=== PATIENT | male | born 1995 | race Caucasian/White ===

== ENCOUNTER 2018-01-21 07:49 | Emergency (ER) | payer MEDICAID, OTHER ==
[2018-01-21 08:00] VITALS: BP 132/81
[2018-01-21] MEDS ORDERED: LORazepam 2 MG/ML SDV IVPUSH ONE ×3 (08:09→08:42)
--- NOTE | 2018-01-21 08:12 | EDM.PDOCBH ---
ED HPI GENERAL MEDICAL PROBLEM - General Chief Complaint: Drug or Alcohol Abuse Stated Complaint: CHEST PAIN/THROAT SWELLING Time Seen by Provider: 01/21/18 08:01 Source of Information: Reports: Patient, Family (frined) History Limitations: Reports: No Limitations - History of Present Illness INITIAL COMMENTS - FREE TEXT/NARRATIVE: 22 year old male presents to ED after using IV Methaphetamines this am. [place] central chest preasure /squeeze about one hour after IV injection. Not aware of any palpations. Feels lightheaded and dizzy. Has used meth before without any problems or similar feelings. Feels temulous and anxious. ECG done by yuan vickers reveals sinus rythm at 789/mion. No signs of ischemia. r Onset: Today Onset Date: 01/21/18 Onset Time: 07:00 Duration: Minutes: Location: Reports: Chest (central chest squeeze /discomfort. ) Quality: Reports: Ache, Pressure Severity: Moderate Improves with: Reports: None Worsens with: Reports: None Context: Reports: Other (IV use of methampheatmines. ). Denies: Activity, Exercise, Lifting, Sick Contact Associated Symptoms: Reports: Chest Pain. Denies: Cough, cough w sputum, Diaphoresis, Headaches, Loss of Appetite, Malaise, Nausea/Vomiting, Rash, Seizure, Shortness of Breath, Syncope Treatments [employer]: Reports: Other (see below) (none. ) Chest Pain Score (Numeric/FACES): 7 - Related Data Allergies Allergy/AdvReac Type Severity Reaction Status Date / Time No Known Allergies Allergy Verified 01/21/18 07:56 Home Meds: Home Meds . [No Known Home Meds] 05/19/15 [History] Past Medical History Gastrointestinal History: Reports: None Other Musculoskeletal History: mylocytosis Psychiatric History: Reports: Addiction Other Psychiatric History: ODD - Past Surgical History GI Surgical History: Reports: Appendectomy Social & Family History - Family History Family Medical History: Noncontributory - Tobacco Use Smoking Status *Q: Current Every Day Smoker Years of Tobacco use: 6 Packs/Tins Daily: 0.5 - Caffeine Use Caffeine Use: Reports: Coffee - Recreational Drug Use Recreational Drug Use: Yes Drug Use in Last 12 Months: Yes Recreational Drug Type: Reports: Methamphetamine Recreational Drug Use Frequency: Daily - Living Situation & Occupation Living situation: Reports: Single Occupation: Student ED ROS GENERAL - Review of Systems Review Of Systems: See Below Constitutional: Denies: Fever, Malaise, Weakness, Fatigue, Weight Loss HEENT: Reports: No Symptoms Respiratory: Reports: No Symptoms Cardiovascular: Reports: Chest Pain. Denies: Blood Pressure Problem, Lightheadedness Endocrine: Reports: No Symptoms GI/Abdominal: Reports: No Symptoms : Reports: No Symptoms Musculoskeletal: Reports: No Symptoms Skin: Reports: No Symptoms Neurological: Reports: No Symptoms Psychiatric: Reports: No Symptoms Hematologic/Lymphatic: Reports: No Symptoms Immunologic: Reports: No Symptoms ED EXAM, BEHAVIORAL HEALTH - Physical Exam Exam: See Below Exam Limited By: No Limitations General Appearance: Alert, Anxious, Moderate Distress Throat/Mouth: Normal Inspection, Other (orpharynx is inflamed from cigarette smoking. Tongue is mildy dry and coated. ) Neck: Normal Inspection, Supple, Non-Tender, Full Range of Motion. No: Carotid Bruit, Lymphadenopathy (L), Lymphadenopathy (R) Respiratory/Chest: No Respiratory Distress, Lungs Clear, Normal Breath Sounds, No Accessory Muscle Use, Chest Non-Tender Cardiovascular: Normal Peripheral Pulses, Regular Rate, Rhythm, No Edema, No Gallop, No Murmur GI/Abdominal: Normal Bowel Sounds, Soft, Non-Tender, No Organomegaly, No Abnormal Bruit, No Mass, Pelvis Stable Back Exam: Normal Inspection, Full Range of Motion. No: CVA Tenderness (L), CVA Tenderness (R) Extremities: Normal Inspection, Normal Range of Motion, Non-Tender, No Pedal Edema, Normal Capillary Refill Neurological: Alert, Normal Mood/Affect, CN II-XII Intact, Normal Cognition, Normal Reflexes Psychiatric: Agitated (mild ), Other (anxious) Skin Exam: Warm, Dry, Intact, Normal color, No rash EKG INTERPRETATION EKG Date: 01/21/18 Time: 08:05 Rhythm: NSR Rate (Beats/Min): 89 [place]: LAD-Left [place] Deviation P-Wave: Present QRS: Other ST-T: Normal QT: Normal COURSE, BEHAVIORAL HEALTH COMP - Course Vital Signs: Last Vital Signs Temp 36.8 C 01/21/18 07:56 Pulse 91 01/21/18 07:56 Resp 16 01/21/18 07:56 BP 132/81 01/21/18 07:56 Pulse Ox 100 05/07/18 07:56 Orders, Labs, Meds: Active Orders 24 hr Category Date Time Status EKG Documentation Completion [RC] ASDIRECTED Care 01/21/18 08:09 Inactive EKG Documentation Completion [RC] STAT Care 01/21/18 08:09 Inactive EKG Documentation Completion [RC] STAT Care 01/21/18 08:11 Active DRUG SCREEN, URINE [URCHEM] Stat Lab 01/21/18 10:08 Ordered Dextrose 5%-0.9% NaCl [Dextrose 5%-Normal Saline] 1,000 Med 01/21/18 08:15 Active ml IV ASDIRECTED EKG 12 Lead [EK] Stat Ther 01/21/18 08:09 Stop Req Medication Orders Dextrose/Sodium Chloride (Dextrose 5%-Normal Saline) 1,000 mls @ 999 mls/hr IV ASDIRECTED JIMMIE Last Admin: 01/21/18 08:16 Dose: 999 mls/hr Laboratory Tests 01/21/18 01/21/18 01/21/18 Range/Units 08:21 08:21 10:08 WBC 12.50 H (4.23-9.07) K/mm3 RBC 5.13 (4.63-6.08) M/mm3 Hgb 15.2 (13.7-17.5) gm/L Hct 42.7 (40.1-51.0) % MCV 83.2 (79.0-92.2) fl MCH 29.6 (25.7-32.2) pg MCHC 35.6 H (32.2-35.5) g/dl RDW Std Deviation 38.2 (35.1-43.9) fL Plt Count 354 H (163-337) K/mm3 MPV 8.8 L (9.4-12.3) fl Neutrophils % (Manual) 73 H (40-60) % Band Neutrophils % 0 (0-10) % Lymphocytes % (Manual) 23 (20-40) % Atypical Lymphs % 0 % Monocytes % (Manual) 2 (2-10) % Eosinophils % (Manual) 2 (0.8-7.0) % Basophils % (Manual) 0 L (0.2-1.2) Platelet Estimate Adequate RBC Morph Comment Normal Sodium 142 (136-145) mEq/L Potassium 3.2 L (3.5-5.1) mEq/L Chloride 103 (98-107) mEq/L Carbon Dioxide 25 (21-32) mEq/L Anion Gap 17.2 H (5-15) BUN 14 (7-18) mg/dL Creatinine 1.1 (0.7-1.3) mg/dL Est Cr Clr Drug Dosing 110.61 mL/min Estimated GFR (MDRD) > 60 (>60) mL/min BUN/Creatinine Ratio 12.7 L (14-18) Glucose 84 (74-106) mg/dL Calcium 10.2 H (8.5-10.1) mg/dL Total Bilirubin 0.7 (0.2-1.0) mg/dL AST 16 (15-37) U/L ALT 32 (16-63) U/L Alkaline Phosphatase 89 (46-116) U/L CK-MB (CK-2) 3.2 (0-3.6) ng/ml Troponin I < 0.017 (0.00-0.056) ng/mL Total Protein 8.6 H (6.4-8.2) g/dl Albumin 4.8 (3.4-5.0) g/dl Globulin 3.8 gm/dL Albumin/Globulin Ratio 1.3 (1-2) Urine Opiates Screen Negative (NEGATIVE) Ur Buprenorphine Scrn Negative (NEGATIVE) Ur Oxycodone Screen Negative (NEGATIVE) Urine Methadone Screen Negative (NEGATIVE) Ur Propoxyphene Screen Negative (NEGATIVE) Ur Barbiturates Screen Negative (NEGATIVE) Ur Tricyclics Screen Negative (NEGATIVE) Ur Phencyclidine Scrn Negative (NEGATIVE) Ur Amphetamine Screen Presumptive positive H (NEGATIVE) U Methamphetamines Scrn Negative (NEGATIVE) U Benzodiazepines Scrn Presumptive positive H (NEGATIVE) U Cocaine Metab Screen Negative (NEGATIVE) U Marijuana (THC) Screen Presumptive positive H (NEGATIVE) Medications Generic Name Dose Route Start Last Admin Trade Name Freq PRN Reason Stop Dose Admin Dextrose/Sodium Chloride 1,000 mls @ 999 mls/hr 01/21/18 08:15 01/21/18 08:16 Dextrose 5%-Normal Saline IV 999 mls/hr ASDIRECTED JIMMIE Administration Discontinued Medications Generic Name Dose Route Start Last Admin Trade Name Freq PRN Reason Stop Dose Admin Haloperidol Lactate 2.5 mg 01/21/18 10:19 01/21/18 10:24 Haldol IVPUSH 01/21/18 10:20 2.5 mg ONETIME ONE Administration Lorazepam 0.5 mg 01/21/18 08:09 01/21/18 08:16 Ativan IVPUSH 01/21/18 08:10 0.5 mg ONETIME ONE Administration Lorazepam 0.5 mg 01/21/18 08:30 01/21/18 08:32 Ativan IVPUSH 01/21/18 08:31 0.5 mg ONETIME ONE Administration Lorazepam 1 mg 01/21/18 08:42 01/21/18 08:51 Ativan IVPUSH 01/21/18 08:43 1 mg ONETIME ONE Administration Re-Assessment/Re-Exam: 22 year old male presents to ED after IV use of methampheatmines with chief complaint of central chest discomfort. ECG reveals sinus rythm at 889/min with no signs of ischemia. Plan ;IV D5 normal saline at 999mls/hr. Ativan 0.5mg IV. Routine labs to include cardiac markers. CXR. Re-Assessment/Re-Exam Date: 01/21/18 ( feeling more anxious. Given another dose of Ativan 0.5mg IV. ) Re-Assessment/Re-Exam Time: 08:41 (now feels like he cant breath out of his mouth. Given another 1mg of Ativan IV. CXR portabe is normal. 02 satsare 98% on room air. ) Medical Clearance: 01/21/18 10:15 Labs are back revealing an elevated white count at 12.50 with 72 % neutrophils no bands. Hemoglobin is 15.2 with hematocrit of 42.7. Neutral count is 73% with no bands. Serum sodium is 142 with potassium slightly low at 3.2. Chloride is 103 with a bicarbonate 25. Anion gap is mildly elevated at 17.2. BUNs 14. Creatinine is 1.1. Glucose is 84. Calcium is 10.2. Bilirubin 0.7. AST is 16 ALTs 32. Alk phosphatase is 89. Troponin is less than 0.017. CK- MB is 3.2. Normal. Patient is exhibiting some visual hallucinations. He states he seeing ghosts that time. Still feeling rather anxious still talking a little faster rate than normal. Vital signs are normal. Will give him 2.5 mg of Haldol IV. Will see how he does in the next half hour so. 01/21/18 11:54 patient is doing better. He is now resting he has been sleeping for the last hour since the Haldol was given. Discharged in the care of his girlfriend to take him home to sleep. Of course he'll have to make a decision is going to continue his path of continued methamphetamine use and self- destructive behavior. Departure - Departure Time of Disposition: 12:13 Disposition: Home, Self-Care 01 Condition: Fair Clinical Impression: Adverse effect of amphetamines, initial encounter - Discharge Information Instructions: Stimulant Use Disorder-Amphetamines, Finding Treatment for Addiction, Stimulant Use Disorder-Methamphetamines Referrals: PCP,None [Primary Care Provider] - Additional Instructions: Evaluation in the emergency room today in regards to adverse effects of methamphetamine use. Development of central chest pain which proved to show no signs of heart involvement all of the heart may well been racing for a period of time after initial injection. Lab work indicates no signs of heart attack and ECG is normal. Started to have all kinds of abnormal symptoms such as anxiety throat closure and some paranoia and auditory hallucinations. You're treated with Ativan 0.5 mg IV 2 and then 1 mg IV 1. When she identified that she was experiencing auditory hallucinations you're also given Haldol 2.5 mg IV to alleviate hallucinations. Strongly urge you to consider reconsider using methamphetamines in the future. If you think you have a problem with methamphetamines please call [facility] at [phone] to arrange for counseling services. Other consulting centers are [facility] at [phone]. GERD center is [facility] substance abuse counseling center. Phone number is [phone]. Otherwise home to rest today plenty of fluids when you wake up such as Gatorade Powerade and resume diet as able. - My Orders Last 24 Hours: My Active Orders 01/21/18 08:09 EKG Documentation Completion [RC] ASDIRECTED EKG Documentation Completion [RC] STAT EKG 12 Lead [EK] Stat 01/21/18 08:11 EKG Documentation Completion [RC] STAT 01/21/18 08:15 Dextrose 5%-0.9% NaCl [Dextrose 5%-Normal Saline] 1,000 ml IV ASDIRECTED 01/21/18 10:08 DRUG SCREEN, URINE [URCHEM] Stat - Assessment/Plan Last 24 Hours: My Active Orders 01/21/18 08:09 EKG Documentation Completion [RC] ASDIRECTED EKG Documentation Completion [RC] STAT EKG 12 Lead [EK] Stat 01/21/18 08:11 EKG Documentation Completion [RC] STAT 01/21/18 08:15 Dextrose 5%-0.9% NaCl [Dextrose 5%-Normal Saline] 1,000 ml IV ASDIRECTED 01/21/18 10:08 DRUG SCREEN, URINE [URCHEM] Stat
[2018-01-21] MEDS ORDERED: Dextrose 5%-0.9% NaCl 1,000 ML IV SCH (08:15)
--- NOTE | 2018-01-21 08:55 | CR ---
Chest: Frontal view of the chest was obtained. Comparison: No prior chest x-ray. Heart size and mediastinum are normal. Lungs are clear. Minimal scoliosis is present within the spine. Impression: 1. Nothing acute is seen on frontal chest x-ray. Diagnostic code #1
[2018-01-21] MEDS ORDERED: Haloperidol Lactate 5 MG/ML SDV IVPUSH ONE (10:19)
== END 2018-01-21 12:12 | disposition home or self-care (01) ==
LOC: JD.ED 07:49
DX: R07.89 Other chest pain (principal); T43.625A Adverse effect of amphetamines, initial encounter; F17.210 Nicotine dependence, cigarettes, uncomplicated
CPT/HCPCS: 36415; 71045; 80053; 80306; 82553; 84484; 85025; 93005; 96361; 96374; 96375; 96376; 99285; J1630; J2060; J7042; 93010; 99284-25

== ENCOUNTER 2021-11-17 14:00 | Emergency (ER) | payer MEDICAID ==
[2021-11-17 14:15] VITALS: BP 129/72; PULSE 93
[2021-11-17] MEDS ORDERED: HYDROmorphone 0.5 MG/0.5 ML Syringe IVPUSH ONE (14:29)
[2021-11-17] MEDS ORDERED: Sodium Chloride 0.9% 10 ML Syringe FLUSH PRN (14:29)
[2021-11-17] MEDS ORDERED: HYDROmorphone 1 MG/ML Syringe IM ONE (14:45)
== END 2021-11-17 16:17 | disposition home or self-care (01) ==
LOC: JD.ED 14:00
DX: L89.899 Pressure ulcer of other site, unspecified stage (principal); Z72.0 Tobacco use
CPT/HCPCS: 36415; 80053; 85025; 86140; 96372; 99283; J1170

== ENCOUNTER 2021-12-12 12:37 | Emergency (ER) | payer MEDICAID ==
[2021-12-12 13:03] VITALS: BP 118/62; PULSE 106
[2021-12-12] MEDS ORDERED: Doxycycline 100 MG Cap PO ONE (13:06)
[2021-12-12] MEDS ORDERED: Mupirocin Oint 22 GM Tube TOP ONE (13:07)
[2021-12-12] MEDS ORDERED: Ketorolac 30 MG/ML SDV ONE (13:31)
[2021-12-12] MEDS ORDERED: Acetaminophen 325 MG Tab ONE (13:32)
[2021-12-12] MEDS ORDERED: Ketorolac 30 MG/ML SDV IM ONE (13:34)
[2021-12-12] MEDS ORDERED: Acetaminophen 325 MG Tab PO ONE (13:34)
== END 2021-12-12 13:47 | disposition home or self-care (01) ==
LOC: JD.ED 12:37
DX: S81.001A Unspecified open wound, right knee, initial encounter (principal); S81.801A Unspecified open wound, right lower leg, initial encounter
CPT/HCPCS: 87070; 87075; 87205; 96372; 99283; A9270; J1885; 87077; 87186

== ENCOUNTER 2022-03-15 22:20 | Emergency (ER) | payer MEDICAID ==
[2022-03-15 22:38] VITALS: BP 126/68; PULSE 105
[2022-03-15] MEDS ORDERED: Morphine 2 MG/ML SYRINGE IVPUSH ONE (23:22)
[2022-03-15] MEDS ORDERED: Ondansetron 4 MG/2 ML SDV IVPUSH ONE (23:22)
[2022-03-15] MEDS ORDERED: Lactated Ringers 1,000 ML IV SCH (23:30)
[2022-03-16] MEDS ORDERED: Azithromycin 250 MG Tab PO ONE (01:19)
[2022-03-16] MEDS ORDERED: cefTRIAXone 1 GM, Lidocaine 1% 2.1 ML IM SCH ×2 (01:30)
== END 2022-03-16 01:45 | disposition home or self-care (01) ==
LOC: JD.ED 22:20
DX: N30.01 Acute cystitis with hematuria (principal); N49.0 Inflammatory disorders of seminal vesicle; F17.210 Nicotine dependence, cigarettes, uncomplicated
CPT/HCPCS: 36415; 74176; 80053; 81001; 85025; 96361; 96372; 96374; 96375; 99284; A9270; J0696; J2270; J2405; J7120

== ENCOUNTER 2022-04-18 12:15 | Emergency (ER) | payer MEDICAID ==
[2022-04-18 12:43] VITALS: BP 110/56; PULSE 97
[2022-04-18] MEDS ORDERED: Sodium Chloride 0.9% 10 ML Syringe FLUSH PRN (13:10)
[2022-04-18] MEDS ORDERED: Sodium Chloride 0.9% 1,000 ML IV ONE (13:10)
[2022-04-18] MEDS ORDERED: Iopamidol 755 Mg/ML 100 ML Bottle IVPUSH ONE (14:53)
[2022-04-18] MEDS: Sodium Chloride 0.9% 10 ML Syringe FLUSH PRN ×2 (14:59→15:09)
[2022-04-18] MEDS ORDERED: Sodium Chloride 0.9% 100 ML IV SCH (15:00)
== END 2022-04-18 16:00 ==
LOC: JD.ED 12:15
DX: R07.89 Other chest pain (principal); F15.90 Other stimulant use, unspecified, uncomplicated; F17.210 Nicotine dependence, cigarettes, uncomplicated; Z86.16 Personal history of COVID-19; Z20.822 Contact with and (suspected) exposure to COVID-19
CPT/HCPCS: 36415; 71045; 71275; 80053; 80143; 80306; 80307; 81001; 83605; 83735; 83880; 84484; 85025; 85379; 86140; 87040; 87077; 87154; 87186; 87635; 93005; 96360; 99285; J3490; J7030; Q9967; U0002